=== PATIENT | male | born 1995 | race Caucasian/White ===

== ENCOUNTER 2023-03-06 05:31 | Emergency (ER) | payer SELFPAY ==
[~2023-03-06] VITALS: Ht 190.5 cm; Wt 97.5 kg
[2023-03-06 06:22] VITALS: BP 129/70
--- NOTE | 2023-03-06 06:25 | NUR ---
BIBSELF C/O LAC TO LEFT HAND TDAP UP TODAY. LAC IS 1.5CM. PT IS PLACED COMFORTABLY IN BED. SKIN PREP DONE.
[2023-03-06] MEDS ORDERED: AMOX-427 PO (06:39)
--- NOTE | 2023-03-06 06:40 | NUR ---
PT REFUSED TO HAVE XRAY. MADE AWARE.
--- NOTE | 2023-03-06 06:45 | NUR ---
STERI STRIP APPLIED TO LAC WOUND.
--- NOTE | 2023-03-06 06:54 | NUR ---
Patient discharged to home in stable condition. Written and verbal after care instructions given. Patient verbalizes understanding of instruction.
== END 2023-03-06 06:56 | disposition home or self-care (01) ==
LOC: ER 05:37
DX: S61.255A Open bite of left ring finger without damage to nail, initial encounter (principal); Z88.8 Allergy status to other drugs, medicaments and biological substances; Z60.2 Problems related to living alone; W50.3XXA Accidental bite by another person, initial encounter; Y93.89 Activity, other specified; Y92.89 Other specified places as the place of occurrence of the external cause; Y99.8 Other external cause status
CPT/HCPCS: 99283; A6403